=== PATIENT | female | born 1995 | race Two or more races ===

== ENCOUNTER 2016-08-21 20:52 | Emergency (ER) | payer MEDICAID, OTHER ==
[~2016-08-21] VITALS: Ht 157.5 cm; Wt 49.9 kg
[2016-08-21 21:59] LABS: BASOPHILS # (AUTO) 0.1 /CMM (0.0-0.2); BASOPHILS % (AUTO) 0.8 % (0.0-2.0); DIFF TOTAL % 100 %; EOSINOPHILS # (AUTO) 0.2 /CMM (0.0-0.7); EOSINOPHILS % (AUTO) 2.9 % (0.0-6.0); HEMATOCRIT 41 % (33-45); HEMOGLOBIN 13.5 g/dL (11.5-14.8); LYMPHOCYTES # (AUTO) 1.8 /CMM (0.8-4.8); LYMPHOCYTES % (AUTO) 29.9 % (20.0-44.0); MEAN CORPUSCULAR HEMOGLOBIN 30 PG (26.0-33.0); MEAN CORPUSCULAR HGB CONC 33 g/dl (31.0-36.0); MEAN CORPUSCULAR VOLUME 90 fL (82-100); MONOCYTES # (AUTO) 0.4 /CMM (0.1-1.30); MONOCYTES % (AUTO) 6.8 % (2.0-12.0); NEUTROPHILS # (AUTO) 3.7 /CMM (1.8-8.9); NEUTROPHILS % (AUTO) 59.6 % (43.0-81.0); PLATELET COUNT (AUTO) 326 /CMM (150-450); RED BLOOD CELL COUNT(AUTO) 4.58 MIL/uL (4.0-5.2); WHITE BLOOD COUNT (AUTO) 6.2 K/uL (4.3-11.0)
[2016-08-21] MEDS ORDERED: IV NS 0.9% 1,000 ML BAG IV ONE (22:00)
[2016-08-21] MEDS ORDERED: MORPHINE SULFATE INJ 2 MG/ML DISP.SYRIN IV ONE (22:00)
[2016-08-21] MEDS ORDERED: ONDANSETRON HCL/PF 4 MG/2 ML VIAL IVP ONE (22:00)
[2016-08-21 22:02] LABS: KETONES,URINE NEGATIVE (NEGATIVE); LEUKOCYTE ESTERASE ,URINE 2+ (NEGATIVE)
[2016-08-21 22:12] LABS: CALCIUM, SERUM 9.3 mg/dL (8.5-10.1); CREATININE 0.8 mg/dL (0.6-1.3); POTASSIUM 3.9 mmol/L (3.5-5.1)
[2016-08-21 22:15] LABS: ALBUMIN 3.9 g/dL (3.4-5.0); BILIRUBIN,DIRECT 0.1 mg/dL (0.0-0.2); BILIRUBIN,TOTAL 0.3 mg/dL (0.2-1.0); INDIRECT BILIRUBIN 0.2 mg/dL (0.0-1.1); TOTAL PROTEIN, SERUM 7.8 g/dL (6.4-8.2)
[2016-08-21 22:20] LABS: ADD UA MICROSCOPIC YES
[2016-08-21 22:47] LABS: ADD URINE CULTURE YES; RBC,URINE TOO NUMEROUS TO COUN /HPF (0-2)
[2016-08-21] MEDS ORDERED: HYDROCODONE/APAP 5/325MG 1 EACH TABLET ONE (22:51)
[2016-08-21] MEDS ORDERED: ONDANSETRON 4 MG TAB.RAPDIS ONE (22:51)
[2016-08-21] MEDS ORDERED: HYDROCODONE/APAP 5/325MG 1 EACH TABLET PO ONE (23:00)
[2016-08-21] MEDS ORDERED: ONDANSETRON 4 MG TAB.RAPDIS PO ONE (23:00)
[2016-08-21 23:23] VITALS: BP 124/76
== END 2016-08-21 23:24 | disposition home or self-care (01) ==
LOC: ER 20:56
DX: N12 Tubulo-interstitial nephritis, not specified as acute or chronic (principal)
CPT/HCPCS: 36415; 80048; 80076; 81001; 83690; 84703; 85025; 87086; 99284; A4606; Q0162; Z7610; 81000-TC

== ENCOUNTER 2017-05-06 00:04 | Emergency (ER) | payer OTHER ==
[~2017-05-06] VITALS: Ht 160 cm; Wt 59.0 kg
--- NOTE | 2017-05-06 00:05 | NUR ---
22 YO FEMALE BB RA FOR ALCOHOL INTOXICATION. PT DS TO ER BED, SKIN WARM AND DRY, RR EVEN AND UNLABORED. PT GOWNED, PLACED ON LIQUOR COMMISSIONER. NO DISTRESS NOTED, AWAITING ORDERS FROM PROVIDER
--- NOTE | 2017-05-06 00:12 | NUR ---
dr chavez at bedside for eval.
[2017-05-06] MEDS ORDERED: ONDANSETRON HCL/PF 4 MG/2 ML VIAL ONE (00:18)
[2017-05-06] MEDS ORDERED: ONDANSETRON HCL/PF 4 MG/2 ML VIAL IV ONE (00:30)
[2017-05-06] MEDS ORDERED: IV NS 0.9% 1,000 ML BAG IV ONE (00:30)
--- NOTE | 2017-05-06 01:49 | NUR ---
PATIENT RESTING IN ER BED, NAD NOTED, PT IS ON PIPELINE SUPERINTENDENT. WILL CONTINUE TO MONITOR
[2017-05-06 03:11] VITALS: BP 104/66
--- NOTE | 2017-05-06 03:11 | NUR ---
Patient discharged to home in stable condition. Written and verbal after care instructions given. Patient verbalizes understanding of instruction. PT ambulatory with a steady gait
== END 2017-05-06 03:13 | disposition home or self-care (01) ==
LOC: ER 00:05
DX: F10.129 Alcohol abuse with intoxication, unspecified (principal); R79.89 Other specified abnormal findings of blood chemistry
CPT/HCPCS: 82962-TC; A4606; J2405; J7030; Z7610

== ENCOUNTER 2019-03-01 18:49 | Emergency (ER) | payer MEDICAID, OTHER ==
[~2019-03-01] VITALS: Ht 154.9 cm; Wt 45.4 kg
[2019-03-01 19:20] VITALS: BP 131/86
[2019-03-01] MEDS ORDERED: IBUPROFEN 400 MG TABLET ONE (19:46)
[2019-03-01] MEDS ORDERED: IBUPROFEN SUSP 100 MG/5 ML UDC ONE (19:49)
[2019-03-01] MEDS ORDERED: IBUPROFEN SUSP 100 MG/5 ML UDC PO ONE (20:00)
== END 2019-03-01 20:26 | disposition home or self-care (01) ==
LOC: ER 18:49
DX: M62.838 Other muscle spasm (principal); M54.2 Cervicalgia; G89.29 Other chronic pain; F10.10 Alcohol abuse, uncomplicated; Y90.9 Presence of alcohol in blood, level not specified; Z88.1 Allergy status to other antibiotic agents; Z60.2 Problems related to living alone

== ENCOUNTER 2019-05-09 18:10 | Emergency (ER) | payer MEDICAID, OTHER ==
[~2019-05-09] VITALS: Ht 152.4 cm; Wt 45.4 kg
--- NOTE | 2019-05-09 18:18 | NUR ---
CAME IN FOR PALPITATIONS X FEW DAYS, C/O LEFT SIDED ABDOMINAL PAIN, DENIES CHEST PAIN. TO ER BED 4, HOOKED TO MONITOR, PROVIDED W WARM BLANKET, AWAITING MD NGO.
--- NOTE | 2019-05-09 18:21 | NUR ---
EKG AT BEDSIDE
[2019-05-09 19:28] VITALS: BP 116/62
--- NOTE | 2019-05-09 19:28 | NUR ---
Patient discharged to home in stable condition. Written and verbal after care instructions given. Patient verbalizes understanding of instruction.
== END 2019-05-09 19:29 | disposition home or self-care (01) ==
LOC: ER 18:13
DX: R00.2 Palpitations (principal); K59.00 Constipation, unspecified; Z88.1 Allergy status to other antibiotic agents; Z60.2 Problems related to living alone

== ENCOUNTER 2019-05-30 19:12 | Emergency (ER) | payer OTHER ==
[~2019-05-30] VITALS: Ht 152.4 cm; Wt 44.9 kg
[2019-05-30 19:26] VITALS: BP 120/74
== END 2019-05-30 22:00 | disposition home or self-care (01) ==
LOC: ER 19:13
DX: H69.83 Other specified disorders of Eustachian tube, bilateral (principal); H92.03 Otalgia, bilateral; F10.10 Alcohol abuse, uncomplicated; Y90.9 Presence of alcohol in blood, level not specified; Z88.1 Allergy status to other antibiotic agents; Z60.2 Problems related to living alone

== ENCOUNTER 2019-06-02 12:48 | Emergency (ER) | payer OTHER ==
[~2019-06-02] VITALS: Ht 152.4 cm; Wt 44.5 kg
--- NOTE | 2019-06-02 12:58 | NUR ---
PATIENT CAME IN TO THE ER C/O HEADACHE x 4 DAYS, ON AND OFF, 04/17 PS, +N/V. ON ROOM AIR, BREATHING EVENLY AND UNLABORED. AMBULATORY WITH STEADY GAIT. KEPT COMFORTABLE, WILL CONTINUE TO MONITOR ACCORDINGLY.
--- NOTE | 2019-06-02 13:10 | NUR ---
LEAD NETWORK ENGINEER DEGRASSE AT BEDSIDE
--- NOTE | 2019-06-02 13:22 | NUR ---
URINE SAMPLE SENT TO LAB
[2019-06-02] MEDS ORDERED: ONDANSETRON 4 MG TAB.RAPDIS ONE (13:24)
[2019-06-02] MEDS: ONDANSETRON 4 MG TAB.RAPDIS SL ONE (13:25)
--- NOTE | 2019-06-02 14:41 | NUR ---
Patient discharged to home in stable condition. Written and verbal after care instructions given. Patient verbalizes understanding of instruction.
[2019-06-02 14:42] VITALS: BP 115/72
== END 2019-06-02 14:42 | disposition home or self-care (01) ==
LOC: ER 12:53
DX: G44.209 Tension-type headache, unspecified, not intractable (principal); F10.10 Alcohol abuse, uncomplicated; Y90.9 Presence of alcohol in blood, level not specified; Z88.1 Allergy status to other antibiotic agents; Z60.2 Problems related to living alone
CPT/HCPCS: 70450; 84703; 99284; Q0162

== ENCOUNTER 2019-09-06 21:41 | Emergency (ER) | payer MEDICAID, OTHER ==
[~2019-09-06] VITALS: Ht 172.7 cm; Wt 43.5 kg
--- NOTE | 2019-09-06 21:57 | NUR ---
PT CAME INTO THE ED C/O NON RADIATING MIDSTERNAL SHARP INTERMITTENT CHEST PAIN, +NAUSEA X 6 HOURS. -SOB -DIAPHORESIS. PT AAOX4, AMBULATORY, RR EVEN AND UNLABORED ON RA W/ NAD NOTED. CONNECTED TO THE MONITOR AND POX
[2019-09-07 00:32] VITALS: BP 117/84
--- NOTE | 2019-09-07 00:32 | NUR ---
Patient discharged to home in stable condition. Written and verbal after care instructions given. Patient verbalizes understanding of instruction.
== END 2019-09-07 00:32 | disposition home or self-care (01) ==
LOC: ER 21:45
DX: R07.89 Other chest pain (principal); R00.2 Palpitations; Z88.1 Allergy status to other antibiotic agents; Z60.2 Problems related to living alone
CPT/HCPCS: 71046

== ENCOUNTER 2019-09-28 20:52 | Emergency (ER) | payer MEDICAID ==
[~2019-09-28] VITALS: Ht 154.9 cm; Wt 46.7 kg
[2019-09-28 21:46] LABS: APPEARANCE,URINE Clear (CLEAR); BILIRUBIN,URINE Negative (NEGATIVE); BLOOD, URINE Negative Ery/uL (NEGATIVE); COLOR,URINE Yellow (YELLOW); KETONES,URINE Negative (NEGATIVE); LEUKOCYTE ESTERASE ,URINE Negative (NEGATIVE); NITRITE, URINE Negative (NEGATIVE); PH,URINE 7.5 (5.0-8.0); PROTEIN,URINE Negative (NEGATIVE); UGLUCOSE Negative (NEGATIVE); UROBILINOGEN,URINE 0.2 EU/dL (0.2)
[2019-09-28 21:49] LABS: BASOPHILS % (AUTO) 0.5 % (0.0-2.0); EOSINOPHILS % (AUTO) 0.7 % (0.0-6.0); HEMATOCRIT 39 % (33-45); HEMOGLOBIN 12.9 g/dL (11.5-14.8); LYMPHOCYTES # (AUTO) 1.7 /CMM (0.8-4.8); LYMPHOCYTES % (AUTO) 24.4 % (20.0-44.0); MEAN CORPUSCULAR HGB CONC 34 g/dl (31.0-36.0); MEAN CORPUSCULAR VOLUME 95 fL (82-100); MONOCYTES # (AUTO) 0.5 /CMM (0.1-1.30); NEUTROPHILS # (AUTO) 4.8 /CMM (1.8-8.9); NEUTROPHILS % (AUTO) 67.4 % (43.0-81.0); PLATELET COUNT (AUTO) 204 /CMM (150-450); RED BLOOD CELL COUNT(AUTO) 4.05 MIL/uL (4.0-5.2); WHITE BLOOD COUNT (AUTO) 7.2 K/uL (4.3-11.0)
[2019-09-28 22:22] LABS: CALCIUM, SERUM 9.1 mg/dL (8.5-10.1); CREATININE 0.6 mg/dL (0.6-1.3); POTASSIUM 3.8 mmol/L (3.5-5.1)
--- NOTE | 2019-09-28 22:23 | NUR ---
PATIENT CAME TO ER BED 16 C/O LOWER BACK PAIN. PATIENT STATES THAT SHE HAS HAD LOWERBACK PAIN AND TOOK 500MG OF TYLENOL AT 1200PM. PAIN IS AGGRAVATED THROUGH STANDING. PATIENT IS 2 PARA 1. AAOX4. NO SOB. BREATHING EVENLY AND UNLABORED ON ROOM AIR.
--- NOTE | 2019-09-28 22:36 | NUR ---
US AT BEDSIDE
[2019-09-28 23:30] LABS: BILIRUBIN,DIRECT 0.1 mg/dL (0.0-0.2); BILIRUBIN,TOTAL 0.3 mg/dL (0.2-1.0)
[2019-09-28 23:31] LABS: ALBUMIN 4.1 g/dL (3.4-5.0); TOTAL PROTEIN, SERUM 7.6 g/dL (6.4-8.2)
[2019-09-28 23:59] VITALS: BP 118/67
--- NOTE | 2019-09-28 23:59 | NUR ---
Patient discharged to home in stable condition. Written and verbal after care instructions given. Patient verbalizes understanding of instruction.
== END 2019-09-29 00:01 | disposition home or self-care (01) ==
LOC: ER 20:53
DX: O26.891 Other specified pregnancy related conditions, first trimester (principal); R10.9 Unspecified abdominal pain; M54.5 Low back pain; Z88.1 Allergy status to other antibiotic agents; Z60.2 Problems related to living alone; Z3A.01 Less than 8 weeks gestation of pregnancy
CPT/HCPCS: 36415; 76805-TC; 80048-TC; 80076-TC; 81000-TC; 83690-TC; 84702-TC; 85025-TC

== ENCOUNTER 2019-10-13 15:26 | Emergency (ER) | payer MEDICAID ==
[~2019-10-13] VITALS: Ht 152.4 cm; Wt 46.3 kg
--- NOTE | 2019-10-13 15:45 | NUR ---
patient came in to the er c/o "Back Pain/Kidney pain started 3days ago". on room air, breathing evenly and unlabored. kept comfortable, will continue to monitor accordingly.
--- NOTE | 2019-10-13 16:49 | NUR ---
veterinary technician instructor at bedside for exam
[2019-10-13 16:50] LABS: BASOPHILS % (AUTO) 0.3 % (0.0-2.0); EOSINOPHILS % (AUTO) 0.5 % (0.0-6.0); HEMATOCRIT 36 % (33-45); HEMOGLOBIN 12.3 g/dL (11.5-14.8); LYMPHOCYTES # (AUTO) 1.7 /CMM (0.8-4.8); LYMPHOCYTES % (AUTO) 21.3 % (20.0-44.0); MEAN CORPUSCULAR HGB CONC 34 g/dl (31.0-36.0); MEAN CORPUSCULAR VOLUME 95 fL (82-100); MONOCYTES # (AUTO) 0.5 /CMM (0.1-1.30); MONOCYTES % (AUTO) 6.1 % (2.0-12.0); NEUTROPHILS # (AUTO) 5.8 /CMM (1.8-8.9); NEUTROPHILS % (AUTO) 71.8 % (43.0-81.0); PLATELET COUNT (AUTO) 208 /CMM (150-450); RED BLOOD CELL COUNT(AUTO) 3.81 MIL/uL (4.0-5.2); WHITE BLOOD COUNT (AUTO) 8.1 K/uL (4.3-11.0)
[2019-10-13 16:56] LABS: CALCIUM, SERUM 9.1 mg/dL (8.5-10.1); CREATININE 0.5 mg/dL (0.6-1.3); POTASSIUM 3.8 mmol/L (3.5-5.1)
[2019-10-13 17:00] LABS: APPEARANCE,URINE Clear (CLEAR); BILIRUBIN,URINE Negative (NEGATIVE); BLOOD, URINE Negative Ery/uL (NEGATIVE); COLOR,URINE Yellow (YELLOW); KETONES,URINE Negative (NEGATIVE); LEUKOCYTE ESTERASE ,URINE Negative (NEGATIVE); NITRITE, URINE Negative (NEGATIVE); PH,URINE 6.5 (5.0-8.0); PROTEIN,URINE Negative (NEGATIVE); UGLUCOSE Negative (NEGATIVE); UROBILINOGEN,URINE 0.2 EU/dL (0.2)
[2019-10-13 17:24] LABS: BILIRUBIN,DIRECT 0.1 mg/dL (0.0-0.2); BILIRUBIN,TOTAL 0.3 mg/dL (0.2-1.0); TOTAL PROTEIN, SERUM 7.4 g/dL (6.4-8.2)
[2019-10-13] MEDS ORDERED: IV NS 0.9% 1,000 ML BAG IV ONE (18:00)
--- NOTE | 2019-10-13 18:48 | NUR ---
Bed assigned to 316-1
[2019-10-13] MEDS ORDERED: ANESTHESIA TRAY IN PYXIS 1 EA TRAY MC ONE (19:07)
[2019-10-13] MEDS ORDERED: LIDOCAINE 1% INJ 50 ML MDV IJ ONE (19:08)
[2019-10-13] MEDS ORDERED: BUPIVACAINE MPF 0.5% W/EPI INJ 30 ML VIAL ONE (19:08)
[2019-10-13] MEDS ORDERED: MIDAZOLAM HCL 2 MG/2ML VIAL ONE (19:10)
[2019-10-13] MEDS ORDERED: CLINDAMYCIN 900 MG/6 ML VIAL ONE (19:11)
--- NOTE | 2019-10-13 19:15 | NUR ---
patient picked up by surgery team going to OR in no distress. signed consents for blood sedation and procedure.
[2019-10-13 19:29] VITALS: BP 126/56
--- NOTE | 2019-10-13 19:31 | NUR ---
report given to Becki LO for marvin.
--- NOTE | 2019-10-13 20:00 | NUR ---
REC'D CALL FROM SURGERY TEAM PT WANTS TO LEAVE AMA. PT RETURNED TO EMERGENCY DEPARTMENT WITH SIGNED AMA FORM. MD AND NURSING SHAFT HEADMAN AWARE. IV removed. Catheter intact and site benign. Pressure and 4x4 applied to site. No bleeding noted.Pt ambulatory with a steady gait.
[2019-10-13] MEDS ORDERED: HYDROCODONE/APAP 5/325MG 1 EACH TABLET PO PRN ×2 (20:30)
[2019-10-13] MEDS ORDERED: ONDANSETRON HCL/PF 4 MG/2 ML VIAL IV PRN ×2 (20:30)
[2019-10-13] MEDS ORDERED: ZOLPIDEM TARTRATE 5 MG TABLET PO PRN ×2 (20:30)
[2019-10-13] MEDS ORDERED: MORPHINE SULFATE INJ 2 MG/ML DISP.SYRIN IV PRN ×2 (20:30)
[2019-10-13] MEDS ORDERED: IV D5/ 0.9% NACL 1,000 ML IV PRN ×2 (20:30)
[2019-10-13] MEDS ORDERED: ACETAMINOPHEN 325 MG TABLET PO PRN ×2 (20:30)
== END 2019-10-13 20:00 | disposition left against medical advice (07) ==
LOC: ER 15:29 → UNDOADMIN 19:01 → MED 19:01 → ER 19:31
DX: O00.90 Unspecified ectopic pregnancy without intrauterine pregnancy (principal); N20.0 Calculus of kidney; E86.0 Dehydration; Z88.1 Allergy status to other antibiotic agents; Z60.2 Problems related to living alone
CPT/HCPCS: 36415; 76770; 76856; 80048; 80076; 81001; 83690; 84702; 85025; 86850; 87081; 96360; 99285; J2250; J3490 ×2; J7030; 81000-TC

== ENCOUNTER 2020-02-27 18:40 | Emergency (ER) | payer MEDICAID ==
[~2020-02-27] VITALS: Ht 154.9 cm; Wt 45.8 kg
[2020-02-27 18:48] VITALS: BP 103/70
--- NOTE | 2020-02-27 18:50 | NUR ---
CAME IN FOR LOWER BACK PAIN, MORE ON THE R x 1WK, ALSO C/O ITCH, REDNESS & SWELLING ON VAGINAL AREA x 3 DAYS, WENT TO URGNT CARE, REFERRED TO ER, TO ER BED 10, HOOKED TO MONITOR, BLANKET PROVIDED, NAD NOTED, AWAITING MD NGO.
--- NOTE | 2020-02-27 19:04 | NUR ---
URINE SAMPLE COLLECTED AND SENT TO LAB
[2020-02-27 19:22] LABS: APPEARANCE,URINE Cloudy (CLEAR); BILIRUBIN,URINE Negative (NEGATIVE); BLOOD, URINE Negative Ery/uL (NEGATIVE); COLOR,URINE Yellow (YELLOW); KETONES,URINE Negative (NEGATIVE); LEUKOCYTE ESTERASE ,URINE Trace (NEGATIVE); NITRITE, URINE Negative (NEGATIVE); PH,URINE 7.5 (5.0-8.0); PROTEIN,URINE Negative (NEGATIVE); UGLUCOSE Negative (NEGATIVE)
--- NOTE | 2020-02-27 19:24 | NUR ---
REPORT GIVEN TO RONN LO FOR OMAR
[2020-02-27 19:28] LABS: BACTERIA,URINE Few /HPF (None Seen); RBC,URINE NONE SEEN /HPF (0-2); SQUAMOUS EPITHELIAL CELL,UR Few /HPF (None Seen)
--- NOTE | 2020-02-27 19:31 | NUR ---
PA AT BEDSIDE FOR PELVIC EXAM
== END 2020-02-27 20:47 | disposition home or self-care (01) ==
LOC: ER 18:44
DX: N39.0 Urinary tract infection, site not specified (principal); B37.3 Candidiasis of vulva and vagina; Z88.1 Allergy status to other antibiotic agents; Z60.2 Problems related to living alone
CPT/HCPCS: 81000-TC; 84703-TC; 87210-TC

== ENCOUNTER 2020-04-28 11:20 | Emergency (ER) | payer MEDICAID ==
[~2020-04-28] VITALS: Ht 152.4 cm; Wt 45.4 kg
--- NOTE | 2020-04-28 11:20 | NUR ---
ER BED 4 Addendum: 04/28/20 at 1201 by DCABANOS PT BIBSELF C/O OF N/V FOR THE LAST 2 WEEKS. VS CHECKED. AWAITING MD NGO.
[2020-04-28] MEDS ORDERED: IV NS 0.9% 1,000 ML BAG IV ONE (12:00)
[2020-04-28] MEDS ORDERED: ONDANSETRON HCL/PF 4 MG/2 ML VIAL IVP ONE (12:00)
--- NOTE | 2020-04-28 12:02 | NUR ---
PT REFUSING TO TAKE ZOFRAN. PER PT SHE DOES NOT WANT ANY MEDICATIONS BUT SHE AGREES TO THE IV FLUIDS. EXPLAINED RISKS AND BENEFITS OF MEDICATIONS.
[2020-04-28 12:10] LABS: BASOPHILS % (AUTO) 0.5 % (0.0-2.0); EOSINOPHILS % (AUTO) 0.7 % (0.0-6.0); HEMATOCRIT 36 % (33-45); HEMOGLOBIN 12.1 g/dL (11.5-14.8); LYMPHOCYTES # (AUTO) 0.9 /CMM (0.8-4.8); LYMPHOCYTES % (AUTO) 16.8 % (20.0-44.0); MEAN CORPUSCULAR HGB CONC 34 g/dl (31.0-36.0); MEAN CORPUSCULAR VOLUME 93 fL (82-100); MONOCYTES # (AUTO) 0.3 /CMM (0.1-1.30); MONOCYTES % (AUTO) 5.8 % (2.0-12.0); NEUTROPHILS # (AUTO) 4.1 /CMM (1.8-8.9); NEUTROPHILS % (AUTO) 76.2 % (43.0-81.0); PLATELET COUNT (AUTO) 360 /CMM (150-450); RED BLOOD CELL COUNT(AUTO) 3.84 MIL/uL (4.0-5.2); WHITE BLOOD COUNT (AUTO) 5.4 K/uL (4.3-11.0)
[2020-04-28 12:21] LABS: CALCIUM, SERUM 9.7 mg/dL (8.5-10.1); CREATININE 0.8 mg/dL (0.6-1.3); POTASSIUM 3.7 mmol/L (3.5-5.1)
[2020-04-28 12:27] LABS: ALBUMIN 3.7 g/dL (3.4-5.0); BILIRUBIN,DIRECT 0.1 mg/dL (0.0-0.2); BILIRUBIN,TOTAL 0.2 mg/dL (0.2-1.0); TOTAL PROTEIN, SERUM 9.1 g/dL (6.4-8.2)
[2020-04-28 12:30] LABS: APPEARANCE,URINE CLOUDY (CLEAR); BILIRUBIN,URINE NEGATIVE (NEGATIVE); BLOOD, URINE NEGATIVE Ery/uL (NEGATIVE); COLOR,URINE YELLOW (YELLOW); KETONES,URINE NEGATIVE (NEGATIVE); LEUKOCYTE ESTERASE ,URINE NEGATIVE (NEGATIVE); NITRITE, URINE NEGATIVE (NEGATIVE); PROTEIN,URINE NEGATIVE (NEGATIVE); UGLUCOSE NEGATIVE (NEGATIVE); UROBILINOGEN,URINE 0.2 EU/dL (0.2)
--- NOTE | 2020-04-28 13:14 | NUR ---
DC HOME Patient discharged to home in stable condition. Written and verbal after care instructions given. Patient verbalizes understanding of instruction. IV removed. Catheter intact and site benign. Pressure and 4x4 applied to site. No bleeding noted.
[2020-04-28 13:15] VITALS: BP 113/67
== END 2020-04-28 13:15 | disposition home or self-care (01) ==
LOC: ER 11:28
DX: R11.2 Nausea with vomiting, unspecified (principal); R53.1 Weakness; Z88.1 Allergy status to other antibiotic agents; Z60.2 Problems related to living alone
CPT/HCPCS: 36415; 80048; 80076; 80320; 81001; 83690; 84703; 85025; 96360; 99283; J7030; 81000-TC; G0480

== ENCOUNTER 2020-05-31 16:36 | Emergency (ER) | payer MEDICAID ==
[~2020-05-31] VITALS: Ht 152.4 cm; Wt 46.3 kg
[2020-05-31] MEDS ORDERED: METOCLOPRAMIDE HCL 10 MG TABLET ONE (17:02)
[2020-05-31 17:04] LABS: BILIRUBIN,URINE Negative (NEGATIVE); BLOOD, URINE Trace-intact Ery/uL (NEGATIVE); COLOR,URINE YELLOW (YELLOW); LEUKOCYTE ESTERASE ,URINE Negative (NEGATIVE); NITRITE, URINE Negative (NEGATIVE); PH,URINE 7.5 (5.0-8.0); PROTEIN,URINE Negative (NEGATIVE); UGLUCOSE Negative (NEGATIVE); UROBILINOGEN,URINE 0.2 EU/dL (0.2)
[2020-05-31] MEDS: METOCLOPRAMIDE HCL 10 MG TABLET PO ONE (17:07)
[2020-05-31 17:18] LABS: BASOPHILS % (AUTO) 0.3 % (0.0-2.0); EOSINOPHILS % (AUTO) 0.8 % (0.0-6.0); HEMATOCRIT 36 % (33-45); HEMOGLOBIN 11.7 g/dL (11.5-14.8); LYMPHOCYTES # (AUTO) 1.6 /CMM (0.8-4.8); LYMPHOCYTES % (AUTO) 28.1 % (20.0-44.0); MEAN CORPUSCULAR HGB CONC 33 g/dl (31.0-36.0); MEAN CORPUSCULAR VOLUME 91 fL (82-100); MONOCYTES # (AUTO) 0.5 /CMM (0.1-1.30); MONOCYTES % (AUTO) 8.1 % (2.0-12.0); NEUTROPHILS # (AUTO) 3.5 /CMM (1.8-8.9); NEUTROPHILS % (AUTO) 62.7 % (43.0-81.0); PLATELET COUNT (AUTO) 216 /CMM (150-450); RED BLOOD CELL COUNT(AUTO) 3.94 MIL/uL (4.0-5.2); WHITE BLOOD COUNT (AUTO) 5.6 K/uL (4.3-11.0)
[2020-05-31 17:20] LABS: BACTERIA,URINE Few /HPF (None Seen); RBC,URINE 0-2 /HPF (0-2); SQUAMOUS EPITHELIAL CELL,UR Moderate /HPF (None Seen); WBC,URINE 0-2 /HPF (0-3)
[2020-05-31 17:49] LABS: CALCIUM, SERUM 8.6 mg/dL (8.5-10.1); CARBON DIOXIDE 26 mmol/L (21-32); CHLORIDE 104 mmol/L (98-107); CREATININE 0.5 mg/dL (0.6-1.3); GLUCOSE 79 mg/dL (74-106); POTASSIUM 3.4 mmol/L (3.5-5.1); SODIUM SERUM 138 mmol/L (136-145); UREA NITROGEN, BLOOD 15 mg/dL (7-18)
[2020-05-31 17:55] LABS: ALANINE AMINOTRANSFERASE 34 U/L (12-78); ALBUMIN 3.9 g/dL (3.4-5.0); ALKALINE PHOSPHATASE 61 U/L (46-116); ASPARTATE AMINOTRANSFERASE 18 U/L (15-37); BILIRUBIN,DIRECT 0.1 mg/dL (0.0-0.2); BILIRUBIN,TOTAL 0.3 mg/dL (0.2-1.0); LIPASE 87 U/L (73-393); TOTAL PROTEIN, SERUM 7.9 g/dL (6.4-8.2)
[2020-05-31 18:25] VITALS: BP 124/68
== END 2020-05-31 18:26 | disposition home or self-care (01) ==
LOC: ER 16:39
DX: R11.2 Nausea with vomiting, unspecified (principal); R00.2 Palpitations; Z88.1 Allergy status to other antibiotic agents; Z60.2 Problems related to living alone
CPT/HCPCS: 36415; 80048; 80076; 81001; 83690; 84484; 84703; 85025; 93005; 99284; J8597

== ENCOUNTER 2020-06-01 15:49 | Emergency (ER) | payer MEDICAID ==
[~2020-06-01] VITALS: Ht 152.4 cm; Wt 47.2 kg
--- NOTE | 2020-06-01 16:02 | NUR ---
pt to er bed 03 c/o dizziness, (room spinning sensation x today.) seen here yesterday for nausea and vomitng. stable vitals at this time. awaiting md ward.
--- NOTE | 2020-06-01 16:34 | NUR ---
kikop pa at bedside for eval.
[2020-06-01] MEDS ORDERED: MECLIZINE HCL 12.5 MG TABLET PO ONE (17:00)
[2020-06-01 17:05] LABS: BASOPHILS % (AUTO) 0.2 % (0.0-2.0); EOSINOPHILS % (AUTO) 0.7 % (0.0-6.0); HEMATOCRIT 33 % (33-45); LYMPHOCYTES # (AUTO) 1.6 /CMM (0.8-4.8); LYMPHOCYTES % (AUTO) 29.3 % (20.0-44.0); MEAN CORPUSCULAR HGB CONC 33 g/dl (31.0-36.0); MEAN CORPUSCULAR VOLUME 91 fL (82-100); MONOCYTES # (AUTO) 0.4 /CMM (0.1-1.30); MONOCYTES % (AUTO) 7.8 % (2.0-12.0); NEUTROPHILS # (AUTO) 3.4 /CMM (1.8-8.9); PLATELET COUNT (AUTO) 201 /CMM (150-450); WHITE BLOOD COUNT (AUTO) 5.5 K/uL (4.3-11.0)
[2020-06-01 17:14] LABS: CALCIUM, SERUM 8.8 mg/dL (8.5-10.1); CREATININE 0.7 mg/dL (0.6-1.3); POTASSIUM 4.4 mmol/L (3.5-5.1)
[2020-06-01 17:28] LABS: ALBUMIN 3.6 g/dL (3.4-5.0); BILIRUBIN,DIRECT 0.1 mg/dL (0.0-0.2); BILIRUBIN,TOTAL 0.3 mg/dL (0.2-1.0); TOTAL PROTEIN, SERUM 7.3 g/dL (6.4-8.2)
[2020-06-01] MEDS ORDERED: MECLIZINE HCL 25 MG TABLET ONE (17:31)
[2020-06-01] MEDS: IV NS 0.9% 1,000 ML BAG IV ONE ×2 (17:33→17:34)
--- NOTE | 2020-06-01 17:37 | NUR ---
pt to radiology for abdominal ct scan via [facility].
--- NOTE | 2020-06-01 18:22 | NUR ---
Patient discharged to home in stable condition. Written and verbal after care instructions given. Patient verbalizes understanding of instruction.
[2020-06-01 18:23] VITALS: BP 121/77
[2020-06-01] MEDS ORDERED: PANTOPRAZOLE 40 MG VIAL IV ONE (18:30)
== END 2020-06-01 18:23 | disposition home or self-care (01) ==
LOC: ER 15:50
DX: R11.2 Nausea with vomiting, unspecified (principal); R10.13 Epigastric pain; R42 Dizziness and giddiness; Z88.1 Allergy status to other antibiotic agents; Z60.2 Problems related to living alone
CPT/HCPCS: 36415; 74176; 80048; 80076; 83690; 84702; 85025; 99284; J7030; J8597

== ENCOUNTER 2020-06-24 10:45 | Emergency (ER) | payer MEDICAID ==
[~2020-06-24] VITALS: Ht 152.4 cm; Wt 44.9 kg
--- NOTE | 2020-06-24 11:05 | NUR ---
bib self c/o nausea, vomiting, congestion./ vs checked. seen by
--- NOTE | 2020-06-24 12:07 | NUR ---
Patient discharged to home in stable condition. Written and verbal after care instructions given. Patient verbalizes understanding of instruction.
[2020-06-24 12:08] VITALS: BP 131/78
== END 2020-06-24 12:08 | disposition home or self-care (01) ==
LOC: ER 10:48
DX: B34.9 Viral infection, unspecified (principal); Z88.1 Allergy status to other antibiotic agents; Z60.2 Problems related to living alone
CPT/HCPCS: 71045-TC

== ENCOUNTER 2020-10-12 14:48 | Emergency (ER) | payer MEDICAID ==
[~2020-10-12] VITALS: Ht 152.4 cm; Wt 48.1 kg
--- NOTE | 2020-10-12 15:46 | NUR ---
Patient came in to the er c/o palpitation on and off x 6 months. On room air, breathing evenly and unlabored. Connected to the monitor and pulse ox. kept comfortable, will continue to monitor accordingly.
[2020-10-12 15:54] LABS: BASOPHILS % (AUTO) 0.3 % (0.0-2.0); HEMATOCRIT 38 % (33-45); HEMOGLOBIN 12.6 g/dL (11.5-14.8); LYMPHOCYTES # (AUTO) 1.7 /CMM (0.8-4.8); LYMPHOCYTES % (AUTO) 29.9 % (20.0-44.0); MEAN CORPUSCULAR HGB CONC 33 g/dl (31.0-36.0); MEAN CORPUSCULAR VOLUME 91 fL (82-100); MONOCYTES # (AUTO) 0.4 /CMM (0.1-1.30); MONOCYTES % (AUTO) 7.3 % (2.0-12.0); NEUTROPHILS # (AUTO) 3.5 /CMM (1.8-8.9); NEUTROPHILS % (AUTO) 61.5 % (43.0-81.0); PLATELET COUNT (AUTO) 190 /CMM (150-450); RED BLOOD CELL COUNT(AUTO) 4.21 MIL/uL (4.0-5.2); WHITE BLOOD COUNT (AUTO) 5.6 K/uL (4.3-11.0)
[2020-10-12 16:00] LABS: BILIRUBIN,URINE NEGATIVE (NEGATIVE); COLOR,URINE YELLOW (YELLOW); LEUKOCYTE ESTERASE ,URINE NEGATIVE (NEGATIVE); NITRITE, URINE NEGATIVE (NEGATIVE); PH,URINE 8.5 (5.0-8.0); PROTEIN,URINE NEGATIVE (NEGATIVE); UGLUCOSE NEGATIVE (NEGATIVE); UROBILINOGEN,URINE 0.2 EU/dL (0.2)
[2020-10-12] MEDS ORDERED: IV NS 0.9% 1,000 ML BAG IV ONE (16:00)
[2020-10-12 16:05] LABS: CALCIUM, SERUM 8.6 mg/dL (8.5-10.1); CARBON DIOXIDE 26 mmol/L (21-32); CHLORIDE 104 mmol/L (98-107); CREATININE 0.6 mg/dL (0.6-1.3); GLUCOSE 86 mg/dL (74-106); SODIUM SERUM 138 mmol/L (136-145); UREA NITROGEN, BLOOD 12 mg/dL (7-18)
[2020-10-12 16:09] LABS: ALANINE AMINOTRANSFERASE 41 U/L (12-78); ALBUMIN 3.9 g/dL (3.4-5.0); ALKALINE PHOSPHATASE 55 U/L (46-116); ASPARTATE AMINOTRANSFERASE 18 U/L (15-37); BILIRUBIN,DIRECT 0.1 mg/dL (0.0-0.2); BILIRUBIN,TOTAL 0.3 mg/dL (0.2-1.0); LIPASE 72 U/L (73-393); TOTAL PROTEIN, SERUM 7.6 g/dL (6.4-8.2)
[2020-10-12 16:24] VITALS: BP 117/66
--- NOTE | 2020-10-12 16:25 | NUR ---
Patient discharged to home in stable condition. Written and verbal after care instructions given. Patient verbalizes understanding of instruction.IV removed. Catheter intact and site benign. Pressure and 4x4 applied to site. No bleeding noted.
== END 2020-10-12 16:25 | disposition home or self-care (01) ==
LOC: ER 14:53
DX: R00.2 Palpitations (principal); R07.89 Other chest pain; Z88.1 Allergy status to other antibiotic agents
CPT/HCPCS: 36415; 80048; 80076; 81003; 83690; 84484; 84703; 85025; 99283; J7030

== ENCOUNTER 2020-11-22 14:39 | Emergency (ER) | payer MEDICAID ==
[~2020-11-22] VITALS: Ht 152.4 cm; Wt 47.6 kg
--- NOTE | 2020-11-22 14:55 | NUR ---
DR GARCIA AT BEDSIDE FOR EVAL.
[2020-11-22] MEDS ORDERED: KETOROLAC TROMETHAMINE INJ 30 MG/ML VIAL IV ONE (15:00)
[2020-11-22] MEDS ORDERED: IV NS 0.9% 1,000 ML BAG IV ONE (15:00)
[2020-11-22] MEDS ORDERED: KETOROLAC TROMETHAMINE 15 MG/ML VIAL ONE (15:10)
[2020-11-22 15:12] LABS: BASOPHILS % (AUTO) 0.3 % (0.0-2.0); EOSINOPHILS % (AUTO) 0.9 % (0.0-6.0); HEMATOCRIT 38 % (33-45); LYMPHOCYTES # (AUTO) 1.2 /CMM (0.8-4.8); LYMPHOCYTES % (AUTO) 27.9 % (20.0-44.0); MEAN CORPUSCULAR HGB CONC 34 g/dl (31.0-36.0); MEAN CORPUSCULAR VOLUME 92 fL (82-100); MONOCYTES # (AUTO) 0.4 /CMM (0.1-1.30); MONOCYTES % (AUTO) 9.3 % (2.0-12.0); NEUTROPHILS # (AUTO) 2.6 /CMM (1.8-8.9); NEUTROPHILS % (AUTO) 61.6 % (43.0-81.0); PLATELET COUNT (AUTO) 189 /CMM (150-450); RED BLOOD CELL COUNT(AUTO) 4.17 MIL/uL (4.0-5.2); WHITE BLOOD COUNT (AUTO) 4.2 K/uL (4.3-11.0)
--- NOTE | 2020-11-22 15:28 | NUR ---
U/S TECH AT BEDSIDE FOR GALLBLADDER ULTRASOUND.
[2020-11-22 15:29] LABS: ALBUMIN 3.9 g/dL (3.4-5.0); BILIRUBIN,DIRECT 0.1 mg/dL (0.0-0.2); BILIRUBIN,TOTAL 0.6 mg/dL (0.2-1.0); CREATININE 0.7 mg/dL (0.6-1.3); POTASSIUM 3.7 mmol/L (3.5-5.1); TOTAL PROTEIN, SERUM 7.6 g/dL (6.4-8.2)
[2020-11-22 15:51] LABS: BILIRUBIN,URINE NEGATIVE (NEGATIVE); COLOR,URINE YELLOW (YELLOW); LEUKOCYTE ESTERASE ,URINE NEGATIVE (NEGATIVE); NITRITE, URINE NEGATIVE (NEGATIVE); PH,URINE 7.5 (5.0-8.0); PROTEIN,URINE NEGATIVE (NEGATIVE); UGLUCOSE NEGATIVE (NEGATIVE)
[2020-11-22 15:58] LABS: BACTERIA,URINE 1+ /HPF (None Seen); SQUAMOUS EPITHELIAL CELL,UR Moderate /HPF (None Seen); URINE AMORPHOUS PHOSPHATES Moderate /HPF (None Seen)
[2020-11-22] MEDS ORDERED: IBUP-1955 PO (17:01)
[2020-11-22 17:11] VITALS: BP 115/66
== END 2020-11-22 17:11 | disposition home or self-care (01) ==
LOC: ER 14:39
DX: M54.5 Low back pain (principal); R31.9 Hematuria, unspecified; D72.819 Decreased white blood cell count, unspecified; E86.0 Dehydration; R10.11 Right upper quadrant pain; R10.13 Epigastric pain; Z87.442 Personal history of urinary calculi; Z98.890 Other specified postprocedural states; Z88.1 Allergy status to other antibiotic agents
CPT/HCPCS: 36415; 76705; 80048; 80076; 81001; 83690; 84703; 85025; 96360; 99284; J7030; J1885

== ENCOUNTER 2020-12-02 17:35 | Emergency (ER) | payer MEDICAID ==
[~2020-12-02] VITALS: Ht 152.4 cm; Wt 48.1 kg
[~2020-12-02 17:35] MED LIST: IBUP-1955 PO
--- NOTE | 2020-12-02 18:00 | NUR ---
BIBS FROM HOME TO ER BED 7. AAOX4. NOT IN RESP DISTRESS, BREATHING EVEN AND UNLABORED. AMBULATORY. CAME IN FOR FEELING SOB, UPPER BACK PAIN, NAUSE AND VOMMITING X 1 WEEK. VSS. EKG DONE AT BEDSIDE. MD WAS AT THE BEDSIDE FOR EVAL. ORDERS RECEIVED, NOTED AND CARRIED OUT.
[2020-12-02 19:09] LABS: BILIRUBIN,URINE NEGATIVE (NEGATIVE); COLOR,URINE YELLOW (YELLOW); LEUKOCYTE ESTERASE ,URINE MODERATE (NEGATIVE); NITRITE, URINE NEGATIVE (NEGATIVE); PH,URINE 6.5 (5.0-8.0); PROTEIN,URINE NEGATIVE (NEGATIVE); UGLUCOSE NEGATIVE (NEGATIVE); UROBILINOGEN,URINE 0.2 EU/dL (0.2)
[2020-12-02 19:25] LABS: BACTERIA,URINE 2+ /HPF (None Seen); RBC,URINE 0-2 /HPF (0-2); SQUAMOUS EPITHELIAL CELL,UR Few /HPF (None Seen); WBC,URINE 21-50 /HPF (0-3)
[2020-12-02] MEDS ORDERED: IBUP100O21 PO (19:36)
[2020-12-02] MEDS ORDERED: CEPH250S PO (19:36)
[2020-12-02] MEDS ORDERED: CEFTRIAXONE 1 G VIAL IM ONE (20:00)
[2020-12-02] MEDS ORDERED: KETOROLAC TROMETHAMINE INJ 30 MG/ML VIAL IM ONE (20:00)
--- NOTE | 2020-12-02 20:06 | NUR ---
pt refused to take the rochephin and toradol shot. provider aware
--- NOTE | 2020-12-02 20:09 | NUR ---
Patient discharged to home in stable condition. Written and verbal after care instructions given. Patient verbalizes understanding of instruction. Pt ambulatory with a steady gait
[2020-12-02 20:19] VITALS: BP 107/61
[2020-12-03] MEDS ORDERED: CEPH250S PO (17:10)
[2020-12-03] MEDS ORDERED: IBUP100O21 PO (17:10)
[2020-12-03] MEDS ORDERED: ONDA4TAB11 PO (17:10)
== END 2020-12-02 20:19 | disposition home or self-care (01) ==
LOC: ER 17:38
DX: N39.0 Urinary tract infection, site not specified (principal); M54.6 Pain in thoracic spine; M54.5 Low back pain
CPT/HCPCS: 71045-TC; 81001; 84703-TC; 87086-TC

== ENCOUNTER 2020-12-03 15:48 | Emergency (ER) | payer MEDICAID ==
[~2020-12-03] VITALS: Ht 152.4 cm; Wt 47.6 kg
[~2020-12-03 15:48] MED LIST changes: +CEPH250S PO; +IBUP100O21 PO
[2020-12-03 15:58] VITALS: BP 110/75
--- NOTE | 2020-12-03 16:00 | NUR ---
THE PATIENT BIBS FOR C/O WORSENING RIGHT FLANK PAIN NOW RADIATING TO BOTH THIGHS. RATES PAIN 8/10. IN ROOM AIR AND DENIES SOB. RESPIRATION REGULAR AND UNLABORED. WILL CONTINUE TO MONITOR THE PATIENT.
[2020-12-03] MEDS ORDERED: CEFTRIAXONE 1GM BAG (ER ONLY) 50 ML IV ONE (16:17)
[2020-12-03] MEDS ORDERED: KETOROLAC TROMETHAMINE 15 MG/ML VIAL ONE ×2 (16:27→17:23)
[2020-12-03] MEDS ORDERED: ONDANSETRON HCL/PF 4 MG/2 ML VIAL ONE ×2 (16:27→17:23)
[2020-12-03 16:29] LABS: BASOPHILS % (AUTO) 0.3 % (0.0-2.0); EOSINOPHILS % (AUTO) 0.7 % (0.0-6.0); HEMATOCRIT 37 % (33-45); HEMOGLOBIN 12.2 g/dL (11.5-14.8); LYMPHOCYTES # (AUTO) 1.4 /CMM (0.8-4.8); LYMPHOCYTES % (AUTO) 28.2 % (20.0-44.0); MEAN CORPUSCULAR HGB CONC 33 g/dl (31.0-36.0); MEAN CORPUSCULAR VOLUME 93 fL (82-100); MONOCYTES # (AUTO) 0.4 /CMM (0.1-1.30); MONOCYTES % (AUTO) 8.3 % (2.0-12.0); NEUTROPHILS # (AUTO) 3.2 /CMM (1.8-8.9); NEUTROPHILS % (AUTO) 62.5 % (43.0-81.0); PLATELET COUNT (AUTO) 173 /CMM (150-450); RED BLOOD CELL COUNT(AUTO) 3.98 MIL/uL (4.0-5.2); WHITE BLOOD COUNT (AUTO) 5.1 K/uL (4.3-11.0)
[2020-12-03] MEDS ORDERED: IV NS 0.9% 1,000 ML BAG IV ONE (16:30)
[2020-12-03] MEDS ORDERED: KETOROLAC TROMETHAMINE INJ 30 MG/ML VIAL IV ONE ×2 (16:30→17:30)
[2020-12-03] MEDS ORDERED: LORAZEPAM INJ 2 MG/ML VIAL IV ONE (16:30)
[2020-12-03] MEDS ORDERED: CEFTRIAXONE 1GM BAG (ER ONLY) 1 GM/50 ML PIGGYBACK IV ONE (16:30)
[2020-12-03] MEDS ORDERED: ONDANSETRON HCL/PF 4 MG/2 ML VIAL IV ONE ×2 (16:30→17:30)
[2020-12-03 16:42] LABS: ALBUMIN 3.7 g/dL (3.4-5.0); BILIRUBIN,DIRECT 0.1 mg/dL (0.0-0.2); BILIRUBIN,TOTAL 0.3 mg/dL (0.2-1.0); CALCIUM, SERUM 8.6 mg/dL (8.5-10.1); CREATININE 0.7 mg/dL (0.6-1.3); TOTAL PROTEIN, SERUM 7.2 g/dL (6.4-8.2)
--- NOTE | 2020-12-03 17:00 | NUR ---
REFUSES TO GIVE URINE DESPITE EXPLAINING RISKS AND BENEFITS
[2020-12-03] MEDS ORDERED: ONDA4TAB11 PO (17:10)
[2020-12-03] MEDS ORDERED: CEPH250S PO (17:10)
[2020-12-03] MEDS ORDERED: IBUP100O21 PO (17:10)
--- NOTE | 2020-12-03 18:07 | NUR ---
Patient discharged to home in stable condition. Written and verbal after care instructions given. Patient verbalizes understanding of instruction.
== END 2020-12-03 18:08 | disposition home or self-care (01) ==
LOC: ER 16:11
DX: N39.0 Urinary tract infection, site not specified (principal); F41.9 Anxiety disorder, unspecified; R42 Dizziness and giddiness; Z98.890 Other specified postprocedural states; Z79.899 Other long term (current) drug therapy
CPT/HCPCS: 36415; 76856; 80048; 80076; 83690; 85025; 96365; 96375; 99284; J0696; J1885; J2405 ×2

== ENCOUNTER 2021-02-20 21:25 | Emergency (ER) | payer MEDICAID ==
[~2021-02-20] VITALS: Ht 154.9 cm; Wt 48.1 kg
[~2021-02-20 21:25] MED LIST changes: +ONDA4TAB11 PO
--- NOTE | 2021-02-20 21:36 | NUR ---
PT BIBSELF C/O RT SIDED FLANK PAIN AND BILATERAL LOWER QUADRANT PAIN X4 DAYS. PT AAOX4 BREATHING EVENLY AND UNLABORED. PT STATES "MY STONES ARE MOVING DOWN, BUT NOW MY LOWER STOMACH HURTS". PT ATTACHED TO MONITOR AND POX.APRON OPERATOR AT BEDSIDE. PT GIVEN BLANKET AND CALL LIGHT WITHIN REACH
--- NOTE | 2021-02-20 21:49 | NUR ---
BLOOD OBTAINED AND SENT TO LAB
--- NOTE | 2021-02-20 21:50 | NUR ---
URINE SENT TO LAB
--- NOTE | 2021-02-20 21:52 | NUR ---
FIELD UNDERWRITER VERBAL ORDER OF 15MG OF TORADOL IV
[2021-02-20 21:55] LABS: BASOPHILS % (AUTO) 0.2 % (0.0-2.0); EOSINOPHILS % (AUTO) 0.6 % (0.0-6.0); HEMATOCRIT 39 % (33-45); HEMOGLOBIN 13.5 g/dL (11.5-14.8); LYMPHOCYTES # (AUTO) 0.8 K/uL (0.8-4.8); LYMPHOCYTES % (AUTO) 13.2 % (20.0-44.0); MEAN CORPUSCULAR HGB CONC 35 g/dl (31.0-36.0); MEAN CORPUSCULAR VOLUME 94 fL (82-100); MONOCYTES # (AUTO) 0.2 K/uL (0.1-1.30); MONOCYTES % (AUTO) 3.9 % (2.0-12.0); NEUTROPHILS # (AUTO) 5.1 K/uL (1.8-8.9); NEUTROPHILS % (AUTO) 82.1 % (43.0-81.0); PLATELET COUNT (AUTO) 159 K/uL (150-450); RED BLOOD CELL COUNT(AUTO) 4.15 MIL/uL (4.0-5.2); WHITE BLOOD COUNT (AUTO) 6.2 K/uL (4.3-11.0)
[2021-02-20 21:59] LABS: BILIRUBIN,URINE NEGATIVE (NEGATIVE); COLOR,URINE YELLOW (YELLOW); LEUKOCYTE ESTERASE ,URINE MODERATE (NEGATIVE); NITRITE, URINE NEGATIVE (NEGATIVE); PH,URINE 8.5 (5.0-8.0); PROTEIN,URINE NEGATIVE (NEGATIVE); UGLUCOSE NEGATIVE (NEGATIVE); UROBILINOGEN,URINE 0.2 EU/dL (0.2)
[2021-02-20] MEDS ORDERED: KETOROLAC TROMETHAMINE INJ 30 MG/ML VIAL IV ONE (22:00)
[2021-02-20] MEDS ORDERED: IV NS 0.9% 1,000 ML BAG IV ONE (22:00)
--- NOTE | 2021-02-20 22:00 | NUR ---
PT STATES PAIN IS TOLERABLE AND WANTS TO HOLD MEDICATION FOR NOW. WILL CONTINUE TO MONITOR PAIN
[2021-02-20 22:02] LABS: BACTERIA,URINE 2+ /HPF (None Seen)
[2021-02-20 22:03] LABS: CALCIUM, SERUM 8.8 mg/dL (8.5-10.1); CREATININE 0.8 mg/dL (0.6-1.3); POTASSIUM 3.3 mmol/L (3.5-5.1)
[2021-02-20 22:03] LABS: URINE AMORPHOUS PHOSPHATES Moderate /HPF (None Seen); WBC,URINE 21-50 /HPF (0-3)
[2021-02-20 22:09] LABS: ALBUMIN 3.9 g/dL (3.4-5.0); BILIRUBIN,DIRECT 0.1 mg/dL (0.0-0.2); BILIRUBIN,TOTAL 0.4 mg/dL (0.2-1.0); TOTAL PROTEIN, SERUM 7.6 g/dL (6.4-8.2)
[2021-02-20] MEDS ORDERED: KETOROLAC TROMETHAMINE 15 MG/ML VIAL ONE (22:15)
--- NOTE | 2021-02-20 22:23 | NUR ---
TAKEN TO RADIOLOGY
[2021-02-20] MEDS ORDERED: MEROPENEM 1 G in IV NS 0.9% 100 ML IV SCH (22:30)
[2021-02-20] MEDS ORDERED: CEPH500T PO ×2 (22:34→22:47)
--- NOTE | 2021-02-20 22:38 | NUR ---
US AT BEDSIDE
[2021-02-20] MEDS ORDERED: MEROPENEM 1 G VIAL IV ONE (23:52)
[2021-02-21] MEDS ORDERED: CEPH500T PO (00:08)
[2021-02-21] MEDS ORDERED: KETO10TA2 PO (00:08)
--- NOTE | 2021-02-21 00:17 | NUR ---
Patient discharged to home in stable condition. Written and verbal after care instructions given. Patient verbalizes understanding of instruction. IV removed. Catheter intact and site benign. Pressure and 4x4 applied to site. No bleeding noted.Pt ambulatory with a steady gait
[2021-02-21 00:19] VITALS: BP 101/87
== END 2021-02-21 00:17 | disposition home or self-care (01) ==
LOC: ER 21:25
DX: N39.0 Urinary tract infection, site not specified (principal); Z98.890 Other specified postprocedural states; Z79.899 Other long term (current) drug therapy
CPT/HCPCS: 36415; 74176; 76770; 80048; 80076; 81001; 83690; 84703; 85025; 87086; 96374; 99285; J1885; J2185; J7060; J7030

== ENCOUNTER 2025-02-23 15:58 | Emergency (ER) | payer MEDICAID, OTHER ==
[~2025-02-23 15:58] MED LIST changes: +CEPH500T PO; +KETO10TA2 PO
== END 2025-02-23 16:41 | disposition left against medical advice (07) ==
LOC: ER 16:02
DX: R07.9 Chest pain, unspecified (principal); R20.0 Anesthesia of skin; Z53.21 Procedure and treatment not carried out due to patient leaving prior to being seen by health care provider